=== PATIENT | female | born 2000 | race Caucasian/White ===

== ENCOUNTER 2025-04-27 17:10 | Emergency (ER) | payer BC | END 2025-04-27 18:08 | disposition home or self-care (01) | LOC: JP.ED 17:10 | DX: K04.7 Periapical abscess without sinus (principal); F17.200 Nicotine dependence, unspecified, uncomplicated; Z79.899 Other long term (current) drug therapy; Z91.018 Allergy to other foods; Z91.040 Latex allergy status | CPT/HCPCS: 99282 ==